=== PATIENT | female | born 1950 | race Caucasian/White ===

== ENCOUNTER 2020-08-31 20:05 | Emergency (ER) | payer MEDICARE, OTHER ==
[~2020-08-31] VITALS: Ht 160 cm; Wt 71.0 kg
[2020-08-31] MEDS ORDERED: SODIUM CHLORIDE FLUSH 10ML SYR IVF ONE (20:30)
[2020-08-31 21:27] LABS: ALANINE AMINOTRANSFERASE 46 U/L (12-78); ALBUMIN 3.8 g/dL (3.4-5.0); ANION GAP 6 mmol/L (5-15); CALCIUM 9.3 mg/dL (8.5-10.1); CHLORIDE 105 mmol/L (98-107)
[2020-08-31 21:29] LABS: BASOPHILS % (AUTO) 1 % (0-1); EOSINOPHILS % (AUTO) 0 % (1-7); LYMPHOCYTES % (AUTO) 13 % (22-44); MEAN CORPUSCULAR HEMOGLOBIN 31.1 pg (27.0-34.8); MEAN CORPUSCULAR HGB CONC 32.6 g/dL (32.4-35.8); MEAN PLATELET VOLUME 7.9 fL (7.4-10.4); MONOCYTES % (AUTO) 10 % (2-9); NEUTROPHILS % (AUTO) 76 % (42-75); PLATELET COUNT 311 x10^3/uL (130-400); RED BLOOD COUNT 4.96 x10^6/uL (3.82-5.3); RED CELL DISTRIBUTION WIDTH 13.4 % (9.6-15.2)
[2020-08-31 21:30] LABS: ALKALINE PHOSPHATASE 69 U/L (45-117); BILIRUBIN,TOTAL 0.5 mg/dL (0.2-1.0); TOTAL PROTEIN 7.6 g/dL (6.4-8.2)
--- NOTE | 2020-08-31 21:30 | NUR ---
LATE ENTRY SUMMARY NOTE: THIS PT HAS PRESENTS TO THE ER AFTER EXPERIENCING 3 WEEKS OF INTERMITTENT BOWEL PROBLEMS. PT STATES THAT HER STOOL IS FORMED AND LOOSE, STATES NORMAL COLORS. PT STATES SHE'S FELT FAINT DURING THESE EPISODES ON THE TOILET. STATES "THEY ALWAYS HAPPEN IN THE AFTERNOON." PT DENIES BEING SICK OR IN CLOSE CONTACT WITH ANYONE WHO'S SICK. PT DENIES CHANGES IN DIET. FAMILIAL HX OF COLON CA. PT IS COMPLIANT WITH ROUTINE COLONOSCOPIES. TODAY PT CAME IN BECAUSE SHE NOTED JACKIE BLOOD IN THE TOILET. STATES SHE DID NOT HAVE A BM AT THIS TIME.
--- NOTE | 2020-08-31 21:41 | NUR ---
PT TO IMAGING.
[2020-08-31 21:46] LABS: MD NO
[2020-08-31] MEDS ORDERED: OMNIPAQUE 350 MG/ML, 100ML BOTTLE ONE (22:00)
[2020-08-31 22:10] LABS: MICROSCOPIC NOT IND
--- NOTE | 2020-08-31 22:12 | NUR ---
ERP BACK TO BEDSIDE, PT INTERACTING APPROPRIATELY.
[2020-08-31 22:34] VITALS: BP 150/81
== END 2020-08-31 23:20 | disposition home or self-care (01) ==
LOC: ED 22:01
DX: K94.01 Colostomy hemorrhage (principal); K92.1 Melena; A09 Infectious gastroenteritis and colitis, unspecified; R00.0 Tachycardia, unspecified; I10 Essential (primary) hypertension; Z90.710 Acquired absence of both cervix and uterus; Z90.49 Acquired absence of other specified parts of digestive tract; Z88.0 Allergy status to penicillin
CPT/HCPCS: 36415; 74177; 80053; 81003; 85025; 93005; 99285; Q9967